=== PATIENT | female | born 1990 | race Caucasian/White ===

== ENCOUNTER 2018-06-16 10:07 | Day surgery (SDC) | payer OTHER ==
[2018-06-14 16:23] VITALS: BMI 20.9
[2018-06-16 10:39] LABS: URINE APPEARANCE SLCLOUDY; URINE BILIRUBIN NEGATIVE (<2.0 mg/dL); URINE COLOR YELLOW; URINE GLUCOSE (UA) NEGATIVE (NEGATIVE); URINE KETONE NEGATIVE (NEGATIVE); URINE LEUK ESTERASE TRACE (NEGATIVE); URINE NITRITE NEGATIVE (NEGATIVE); URINE PROTEIN 1+ (NEGATIVE); URINE UROBILINOGEN NEGATIVE mg/dL (0.2-1.0)
[2018-06-16 10:40] LABS: BASO % 0.7 % (0-2.0); EOS % 5.6 % (0-4.5); HEMATOCRIT 41.5 % (32.4-45.2); LYMPH % 28.8 % (8-40); MCH 30.7 pg (25.7-33.7); MCHC 33.8 g/dl (32.0-36.0); MEAN CELL VOLUME 90.9 fl (80-96); MEAN PLT VOLUME 10.5 fl (7.5-11.1); MONO % 15.5 % (3.8-10.2); NEUT % 49.4 % (42.8-82.8); PLATELET COUNT 198 K/MM3 (134-434); RBC 4.57 M/mm3 (3.60-5.2); RDW 14.1 % (11.6-15.6); WHITE BLOOD COUNT 4.6 K/mm3 (4.0-10.0)
[2018-06-16 10:54] LABS: EPI CELLS FEW /HPF (FEW); URINE MUCUS RARE
[2018-06-16] MEDS ORDERED: MIDAZOLAM HCL 2 MG/2 ML SINGLE DOSE VIAL ONE (11:10)
[2018-06-16 11:56] LABS: ALBUMIN 4.1 g/dl (3.4-5.0); ALK PHOS 80 U/L (45-117); ANION GAP 7 MMOL/L (8-16); BILIRUBIN,TOTAL 0.4 mg/dL (0.2-1); BLOOD UREA NITROGEN 9 mg/dL (7-18); CALCIUM 9.2 mg/dL (8.5-10.1); CHLORIDE 105 mmol/L (98-107); CO2 25 mmol/L (21-32); CREATININE 0.7 mg/dL (0.55-1.3); GLUCOSE,RANDOM 87 mg/dL (74-106); SGOT/AST 31 U/L (15-37); SGPT/ALT 42 U/L (13-61); SODIUM 137 mmol/L (136-145); TOT PROT 7.2 g/dl (6.4-8.2)
[2018-06-16] MEDS ORDERED: IBUPROFEN 400 MG TABLET (FP) PO PRN (13:02)
[2018-06-16] MEDS ORDERED: ACETAMINOPHEN 325 MG TABLET (FP) PO PRN (13:02)
[2018-06-16] MEDS ORDERED: oxyCODONE HCL 5 MG TABLET PO PRN (13:02)
--- NOTE | 2018-06-16 13:02 | HP ---
History & Physical Update - History History: No Change - Physical Physical: No Change - Assessment Assessment: No Change - Plan Plan: No Change (No change in HP)
--- NOTE | 2018-06-16 14:07 | OP ---
Operative Note - Note: Operative Date: 06/16/18 Pre-Operative Diagnosis: Missed Operation: SUction DC Findings: Uterus 8-9 cm Post-Operative Diagnosis: Same as Pre-op Surgeon: Penny Reid Anesthesia: General Estimated Blood Loss (mls): 40 Operative Report Dictated: Yes
--- NOTE | 2018-06-16 15:05 | OP ---
DATE OF OPERATION: 06/16/2018 PREOPERATIVE DIAGNOSIS: Missed . OPERATION: Suction dilation and curettage. POSTOPERATIVE DIAGNOSIS: Missed . SURGEON: Penny Reid MD ANESTHESIA: General. DESCRIPTION OF PROCEDURE: The patient was taken to the operating room, placed in dorsal lithotomy position, prepped and draped in the usual sterile fashion. Time-out was performed in accordance with hospital regulation. Speculum was placed in the vagina. Anterior lip of the cervix was grasped with a single-tooth tenaculum. Cervix was then dilated to accommodate No. 8 suction curette. Suction curettage followed by sharp curettage. All contents were emptied. Uterine massage was then done. All instruments were then removed. The patient tolerated the procedure well. Estimated blood loss 40 mL. PENNY REID M.D. [id number]
[2018-06-16 15:10] VITALS: TEMP 97.9
[2018-06-16] MEDS ORDERED: ONDANSETRON 4 MG/2 ML VIAL IVPUSH PRN (15:33)
[2018-06-16] MEDS ORDERED: LACTATED RINGERS SOLUTION 1,000 ML IV SCH (15:45)
[2018-06-16 15:47] VITALS: BP 131/62; PULSE 94
--- NOTE | 2018-06-20 16:27 | PATH ---
Surgical Pathology Report Patient Name: LILIYA DOSS [facility]. Rec. #: [id number] /Age/Gender: 1990 (Age: 28) / F Account: [id number] Location: [facility] SUR[facility]ICAL Taken: 06/16/2018 Received: 06/17/2018 Reported: 06/20/2018 Physicians: Penny Reid M.D. Specimen(s) Received PRODUCTS OF CONCEPTION Clinical History Missed Final Diagnosis PRODUCTS OF CONCEPTION, DILATION AND CURETTAGE: IMMATURE CHORIONIC VILLI AND DECIDUA CONSISTENT WITH PRODUCTS OF CONCEPTION. Electronically Signed Ngoc Henry M.D. Gross Description Received in formalin labeled "products of conception," is a 9.0 x 7.0 x 1.2 cm aggregate of harding-brown soft tissue fragments admixed with blood clot. Villous tissue is identified. No somatic tissue is identified. A fulfillment representative portion is submitted in one cassette. /06/17/2018 saudi06/17/2018
== END 2018-06-16 16:07 | disposition home or self-care (01) ==
LOC: JASU-SURG 10:07
PROVIDERS: ATTEND Obstetrics & Gynecology
PROC: 10D17ZZ Extraction of Products of Conception, Retained, Via Natural or Artificial Opening (ICD-10-PCS; principal; 2018-06-16 11:30)
DX: O02.1 Missed abortion (principal)
CPT/HCPCS: 36415; 80053; 81003; 81015; 84702; 85025; 86850; 86900; 86901; 88305-TC; 94760